=== PATIENT | female | born 1980 | race Caucasian/White ===

== ENCOUNTER 2017-03-15 14:23 | Emergency (ER) | payer BC ==
[2017-03-15 16:55] VITALS: BP 117/71
--- NOTE | 2017-03-15 17:36 | UC ---
Ear Complaint HPI - HPI Summary HPI Summary: right ear pain and decreased hearing - History of Current Complaint Hx Obtained From: Patient Hx Last Menstrual Period: 02/19/17 ?: No Onset/Duration: Gradual Onset, Lasting Days, Still Present Severity Initially: Moderate Severity Currently: Moderate Pain Intensity: 5 Pain Scale Used: 0-10 Numeric Aggravating Factors: Nothing Alleviating Factors: Nothing Associated Signs/Symptoms: Positive: Hearing Loss <Whitney Scott - Last Filed: 03/15/17 19:51> <Yamel Stroud - Last Filed: 03/15/17 20:10> - History of Current Complaint Chief Complaint: UCEar Stated Complaint: EAR PAIN Time Seen by Provider: 03/15/17 17:29 - Allergies/Home Medications Allergies/Adverse Reactions: Allergies Allergy/AdvReac Type Severity Reaction Status Date / Time No Known Allergies Allergy Verified 06/26/16 13:25 PMH/Surg Hx/FS Hx/Imm Hx Previously Healthy: Yes - Surgical History Surgical History: None - Family History Known Family History: Positive: None - Social History Occupation: Employed Full-time Lives: With Family Alcohol Use: Occasionally Substance Use Type: None Smoking Status (MU): Never Smoked Tobacco - Immunization History Most Recent Influenza Vaccination: may 2016 <Whitney Scott - Last Filed: 03/15/17 19:51> Review of Systems Constitutional: Negative Skin: Negative Eyes: Negative ENT: Ear Ache - right Respiratory: Negative Cardiovascular: Negative Gastrointestinal: Negative Genitourinary: Negative Motor: Negative Neurovascular: Negative Musculoskeletal: Negative Neurological: Negative Psychological: Negative All Other Systems Reviewed And Are Negative: Yes <Whitney Scott - Last Filed: 03/15/17 19:51> Physical Exam Triage Information Reviewed: Yes Appearance: Well-Appearing, No Pain Distress, Well-Nourished Vital Signs: Initial Vital Signs Temp 98 F 03/15/17 16:52 Pulse 81 03/15/17 16:52 Resp 16 03/15/17 16:52 BP 117/71 03/15/17 16:52 Pulse Ox 100 03/15/17 16:52 Vital Signs Reviewed: Yes Eye Exam: Normal Eyes: Positive: Conjunctiva Clear ENT Exam: Normal ENT: Positive: Normal ENT inspection, Hearing grossly normal, Pharynx normal, TMs normal - left, Other: - right ear with cerumen impaction after flush canal erythema. Negative: Nasal congestion, Nasal drainage, Tonsillar swelling, Tonsillar exudate, Trismus, Muffled/hoarse voice Dental Exam: Normal Neck exam: Normal Neck: Positive: Supple, Nontender, No Lymphadenopathy Respiratory Exam: Normal Respiratory: Positive: Chest non-tender, Lungs clear, Normal breath sounds, No respiratory distress, No accessory muscle use Cardiovascular Exam: Normal Cardiovascular: Positive: RRR, No Murmur, Pulses Normal, Brisk Capillary Refill Abdominal Exam: Normal Musculoskeletal Exam: Normal Musculoskeletal: Positive: Strength Intact, ROM Intact Neurological Exam: Normal Neurological: Positive: Alert, Muscle Tone Normal Psychological Exam: Normal Skin Exam: Normal <Whitney Scott - Last Filed: 03/15/17 19:51> Vital Signs: Initial Vital Signs Temp 98 F 03/15/17 16:52 Pulse 81 03/15/17 16:52 Resp 16 03/15/17 16:52 BP 117/71 03/15/17 16:52 Pulse Ox 100 03/15/17 16:52 <Yamel Stroud - Last Filed: 03/15/17 20:10> Re-Evaluation - Re-Evaluation First Eval Change: Improved - tolerated flush well, <Whitney Scott - Last Filed: 03/15/17 19:51> Ear Complaint Course/Dx - Course Course Of Treatment: Ciprodex, ibuprofen, follow with pcp prn - Differential Dx/Diagnosis Differential Diagnosis/HQI/PQRI: Cerumen Impaction, Otitis Externa, Otitis Media Provider Diagnoses: Right cerumen impaction, otitis externa <Whitney Scott - Last Filed: 03/15/17 19:51> Discharge <Whitney Scott - Last Filed: 03/15/17 19:51> <Yamel Stroud - Last Filed: 03/15/17 20:10> - Discharge Plan Condition: Stable Disposition: HOME Prescriptions: Ciproflox/Dexameth OTIC.SUSP* [Ciprodex Otic*] 1 drop .SEE ORDER BID #4 drop Patient Education Materials: Otitis Externa (ED) Referrals: [facility] [Outside] - If Needed Attestation Statement User Type: Provider - I was available for consult. This patient was seen by the [facility]. The patient was not presented to, seen by, or examined by me. -Raymond <Yamel Stroud - Last Filed: 03/15/17 20:10>
== END 2017-03-15 18:48 | disposition home or self-care (01) ==
LOC: UCEAST 14:23
DX: H61.21 Impacted cerumen, right ear (principal); H60.91 Unspecified otitis externa, right ear
CPT/HCPCS: 99213; G0463

== ENCOUNTER 2017-07-06 16:05 | Emergency (ER) | payer BC ==
[2017-07-06 17:54] VITALS: BP 127/78
--- NOTE | 2017-07-06 18:15 | UC ---
Throat Pain/Nasal Dontae HPI - HPI Summary HPI Summary: worsening sinus pain crackling in sinus and ears face hurts so bad she cannot close her mouth - History of Current Complaint Chief Complaint: UCRespiratory Stated Complaint: SINUS Time Seen by Provider: 07/06/17 18:08 Hx Obtained From: Patient Hx Last Menstrual Period: 06/23/17 ?: No Onset/Duration: Gradual Onset, Lasting Days, Worse Since - today Severity: Moderate Pain Intensity: 7 Pain Scale Used: 0-10 Numeric Cough: None Associated Signs & Symptoms: Positive: Sinus Discomfort - Allergies/Home Medications Allergies/Adverse Reactions: Allergies Allergy/AdvReac Type Severity Reaction Status Date / Time No Known Allergies Allergy Verified 06/26/16 13:25 Home Medications: Home Medications Lerfbfxrppzgs-Dlztrpevny-Getav [Nyquil Severe Cold/Flu 5-6.25-10-325 mg/15Ml] 1 liq PO 07/06/17 [History] PMH/Surg Hx/FS Hx/Imm Hx Previously Healthy: Yes - Surgical History Surgical History: None - Family History Known Family History: Positive: None - Social History Occupation: Employed Full-time Lives: With Family Alcohol Use: Occasionally Substance Use Type: None Smoking Status (MU): Never Smoked Tobacco - Immunization History Most Recent Influenza Vaccination: may 2016 Review of Systems Constitutional: Chills, Fatigue Skin: Negative Eyes: Negative ENT: Sinus Congestion, Sinus Pain/Tenderness Respiratory: Negative Cardiovascular: Negative Gastrointestinal: Negative Genitourinary: Negative Motor: Negative Neurovascular: Negative Musculoskeletal: Negative Neurological: Headache Psychological: Negative Is Patient Immunocompromised?: No All Other Systems Reviewed And Are Negative: Yes Physical Exam Triage Information Reviewed: Yes Appearance: Well-Nourished, Ill-Appearing, Pain Distress Vital Signs: Initial Vital Signs Temp 98.6 F 07/06/17 17:51 Pulse 70 07/06/17 17:51 Resp 18 07/06/17 17:51 BP 127/78 07/06/17 17:51 Pulse Ox 100 07/06/17 17:51 Vital Signs Reviewed: Yes Eye Exam: Normal Eyes: Positive: Conjunctiva Clear ENT Exam: Normal ENT: Positive: Normal ENT inspection, Hearing grossly normal, Pharynx normal, Nasal congestion, TMs normal, Sinus tenderness, Uvula midline. Negative: Nasal drainage, Tonsillar swelling, Tonsillar exudate, Trismus, Muffled voice, Hoarse voice Dental Exam: Normal Neck exam: Normal Neck: Positive: Supple, Nontender, No Lymphadenopathy Respiratory Exam: Normal Respiratory: Positive: Chest non-tender, Lungs clear, Normal breath sounds, No respiratory distress, No accessory muscle use Cardiovascular Exam: Normal Cardiovascular: Positive: RRR, No Murmur, Pulses Normal, Brisk Capillary Refill Musculoskeletal Exam: Normal Musculoskeletal: Positive: Strength Intact, ROM Intact, No Edema Neurological Exam: Normal Neurological: Positive: Alert, Muscle Tone Normal Psychological Exam: Normal Skin Exam: Normal Throat Pain/Nasal Course/Dx - Course Assessment/Plan: Augmentin, afrin for 3 days, flonase otc medication for additional symptom relief referal for follow up primary care provider - Differential Dx/Diagnosis Provider Diagnoses: Acute Rhinosinusitis Discharge - Discharge Plan Condition: Stable Disposition: HOME Prescriptions: Amoxicillin/Clavulanate TAB* [Augmentin TAB 875*] 875 mg PO BID #20 tab Patient Education Materials: Oxymetazoline (Into the nose), Fluticasone (Into the nose), Sinusitis (ED), How to Use Nasal Dana (ED) Referrals: [facility] [[facility]] - If Needed
== END 2017-07-06 18:24 | disposition home or self-care (01) ==
LOC: UCEAST 16:05
DX: J01.90 Acute sinusitis, unspecified (principal)
CPT/HCPCS: 99212; G0463

== ENCOUNTER 2017-11-14 09:16 | Emergency (ER) | payer BC ==
[2017-11-14 09:57] VITALS: BP 106/72
--- NOTE | 2017-11-14 10:23 | UC ---
Complaint Female HPI - HPI Summary HPI Summary: c/o urinary frequency and burning for the past 7 days, has been hydrating aggresively, she will be traveling tomorrow back to [facility]. Denies fever, nausea, flank pain or history of urolithiasis. - History Of Current Complaint Stated Complaint: FREQUENT AND BURNING URINATION Time Seen by Provider: 11/14/17 09:21 Hx Obtained From: Patient Hx Last Menstrual Period: 06/23/17 ?: Yes Onset/Duration: Sudden Onset, Lasting Days Timing: Constant Severity Initially: Mild Severity Currently: Moderate Pain Intensity: 4 Character: Burning Aggravating Factor(s): Urination Associated Signs And Symptoms: Positive: Negative - Risk Factors Ectopic Risk Factor: Negative Ovarian Torsion Risk Factor: Negative - Allergies/Home Medications Allergies/Adverse Reactions: Allergies Allergy/AdvReac Type Severity Reaction Status Date / Time No Known Allergies Allergy Verified 11/14/17 09:57 PMH/Surg Hx/FS Hx/Imm Hx Previously Healthy: Yes - Surgical History Surgical History: None - Family History Known Family History: Positive: None - Social History Alcohol Use: Occasionally Substance Use Type: None Smoking Status (MU): Never Smoked Tobacco - Immunization History Most Recent Influenza Vaccination: may 2016 Review of Systems Constitutional: Negative Genitourinary: Dysuria, Frequency Is Patient Immunocompromised?: Yes All Other Systems Reviewed And Are Negative: Yes Physical Exam Triage Information Reviewed: Yes Appearance: Well-Appearing, No Pain Distress, Well-Nourished Vital Signs: Initial Vital Signs Temp 97.5 F 11/14/17 09:47 Pulse 79 11/14/17 09:47 Resp 18 11/14/17 09:47 BP 106/72 11/14/17 09:47 Pulse Ox 100 11/14/17 09:47 Vital Signs Reviewed: Yes Eyes: Positive: Conjunctiva Clear Neck: Positive: Supple Respiratory: Positive: Chest non-tender, Lungs clear, Normal breath sounds Cardiovascular: Positive: RRR, No Murmur, Pulses Normal Abdomen Description: Positive: Nontender, No Organomegaly, Soft Bowel Sounds: Positive: Present Complaint Female Dx - Course Course Of Treatment: continue oral hydration, start macrobid twice a day, await results of urine culture - Differential Dx/Diagnosis Provider Diagnoses: UTI Discharge - Sign-Out/Discharge Documenting (check all that apply): Discharge - Discharge Plan Condition: Stable Disposition: HOME Patient Education Materials: Urinary Tract Infection in Women (ED), Nitrofurantoin Combination (By mouth) Referrals: No Primary Care Phys,NOPCP [Primary Care Provider] - - Billing Disposition and Condition Condition: STABLE Disposition: HOME
== END 2017-11-14 10:40 | disposition home or self-care (01) ==
LOC: UCEAST 09:16
DX: N39.0 Urinary tract infection, site not specified (principal); Z32.02 Encounter for pregnancy test, result negative
CPT/HCPCS: 81003; 84702; 87086; 99212; G0463

== ENCOUNTER 2018-07-06 10:00 | Emergency (ER) | payer BC ==
[2018-07-06 10:46] VITALS: BP 120/78
--- NOTE | 2018-07-06 11:14 | UC ---
Respiratory Complaint HPI - HPI Summary HPI Summary: 1 WEEK OF HEADACHE, SINUS PRESSURE, GREEN NASAL DRAINAGE AND COUGH. REPORTS SUBJECTIVE FEVER. NO NAUSEA/VOMITING. NO SORE THROAT OR EAR PAIN. STATES SHE GETS SINUSITIS ONCE A YEAR AND GETS AN ANTIBIOTIC. STATES SHE NEEDS A STRONG ONE "REGULAR "ANTIBIOTICS DON'T WORK. - History of Current Complaint Chief Complaint: UCRespiratory Stated Complaint: SINUS ISSUE Time Seen by Provider: 07/06/18 10:41 Hx Obtained From: Patient Hx Last Menstrual Period: 06/18/18 Onset/Duration: Gradual Onset, Lasting Days, Still Present Timing: Constant Severity Initially: Moderate Severity Currently: Moderate Pain Intensity: 6 Pain Scale Used: 0-10 Numeric Character: Cough: Nonproductive Aggravating Factors: Nothing Alleviating Factors: Nothing Associated Signs And Symptoms: Positive: Fever, Chills, URI, Nasal Congestion, Hoarseness, Sinus Discomfort. Negative: Dyspnea - Allergies/Home Medications Allergies/Adverse Reactions: Allergies Allergy/AdvReac Type Severity Reaction Status Date / Time No Known Allergies Allergy Verified 07/06/18 10:46 Home Medications: Home Medications Dm/Acetaminophen/Doxylamine [Night Cold-Flu Relief Liq Gel] 1 each PO QPM PRN [History Confirmed 07/06/18] Fluticasone NASAL SPRAY 50MCG* [Flonase NASAL SPRAY 50MCG*] 2 spray BOTH NARES DAILY 07/06/18 [History Confirmed 07/06/18] Ibuprofen 800 mg PO ONCE PRN 07/06/18 [History Confirmed 07/06/18] PMH/Surg Hx/FS Hx/Imm Hx Previously Healthy: Yes - Surgical History Surgical History: None - Family History Known Family History: Positive: None - Social History Alcohol Use: Occasionally Substance Use Type: None Smoking Status (MU): Never Smoked Tobacco - Immunization History Most Recent Influenza Vaccination: may 2016 Review of Systems All Other Systems Reviewed And Are Negative: Yes Constitutional: Positive: Fever, Chills, Fatigue ENT: Positive: Nasal Discharge, Sinus Congestion Respiratory: Positive: Cough Cardiovascular: Positive: Negative Gastrointestinal: Positive: Negative Neurological: Positive: Headache Physical Exam Triage Information Reviewed: Yes Appearance: Well-Appearing, No Pain Distress, Well-Nourished Vital Signs: Initial Vital Signs Temp 99 F 07/06/18 10:42 Pulse 88 07/06/18 10:42 Resp 14 07/06/18 10:42 BP 120/78 07/06/18 10:42 Pulse Ox 97 07/06/18 10:42 Vital Signs Reviewed: Yes Eyes: Positive: Conjunctiva Clear ENT: Positive: Hearing grossly normal, Pharyngeal erythema, Nasal congestion, TMs normal, Hoarse voice Neck: Positive: Supple, Nontender, No Lymphadenopathy Respiratory Exam: Normal Cardiovascular Exam: Normal Abdomen Description: Positive: Soft Musculoskeletal: Positive: No Edema Neurological: Positive: Alert Psychological: Positive: Age Appropriate Behavior Skin: Negative: Rashes UC Diagnostic Evaluation - Laboratory O2 Sat by Pulse Oximetry: 97 Respiratory Course/Dx - Differential Dx/Diagnosis Provider Diagnosis: Acute sinusitis Discharge - Sign-Out/Discharge Documenting (check all that apply): Patient Departure All imaging exams completed and their final reports reviewed: No Studies - Discharge Plan Condition: Stable Disposition: HOME Prescriptions: Amoxicillin/Clavulanate TAB* [Augmentin TAB 875*] 875 mg PO BID #20 tab Patient Education Materials: Sinusitis (ED) Referrals: No Primary Care Phys,NOPCP [Primary Care Provider] - Additional Instructions: YOUR SYMPTOMS MAY BE VIRALLY MEDIATED BUT GIVEN THE LENGTH OF TIME YOU HAVE BEEN ILL WE WILL COVER YOU WITH ANTIBIOTICS. IF YOU START THE MEDICINE BE SURE TO TAKE IT FOR THE FULL COURSE. REST, HYDRATE, OTC MEDS NEEDED. SEEK FOLLOW- UP WITH YOUR PCP IF YOU ARE NOT IMPROVING OVER THE NEXT 1-2 WEEKS. I'M CONCERNED ABOUT YOUR REGULAR ANTIBIOTIC USE FOR SINUS INFECTIONS. YOU ARE ALREADY REPORTING RESISTANCE TO CERTAIN MEDICATIONS. CONSIDER FOLLOWING UP WITH ENT TO DISCUSS YOUR RECURRENT SYMPTOMS AND ANY POSSIBLE INTERVENTIONS. [facility] [place] [address] [facility] [phone] - Billing Disposition and Condition Condition: STABLE Disposition: Home
== END 2018-07-06 11:19 | disposition home or self-care (01) ==
LOC: UCEAST 10:00
DX: J01.90 Acute sinusitis, unspecified (principal)
CPT/HCPCS: 99212; G0463